=== PATIENT | male | born 1975 | race African-American/Black ===

== ENCOUNTER 2020-07-10 15:55 | Inpatient (IN) | payer OTHER ==
[2020-07-10] VITALS (176 sets, daily range): BP systolic 108; BP diastolic 71; PULSE 142; TEMP 98; O2SAT 94–100
[~2020-07-10] VITALS: Ht 182.9 cm; Wt 95.1 kg
[2020-07-10] MEDS ORDERED: SEROQUEL300 MG PO (16:47)
[2020-07-10] MEDS ORDERED: ASPIRIN 32325 MG/TAB PO (16:47)
[2020-07-10] MEDS ORDERED: PERIACTIN 4MG TA4 MG PO (16:48)
[2020-07-10] MEDS ORDERED: LIPITOR 80MG80 MG PO (16:48)
[2020-07-10] MEDS ORDERED: DEPAKOTE500 MG PO (16:48)
[2020-07-10] MEDS ORDERED: TRICOR145 MG PO (16:49)
[2020-07-10] MEDS ORDERED: PROZAC60 MG PO (16:49)
[2020-07-10] MEDS ORDERED: NEURONTIN100 MG/CAP PO (16:50)
[2020-07-10] MEDS ORDERED: HALDOL 2MG T2 MG/TAB PO (16:50)
[2020-07-10] MEDS ORDERED: VISTARIL100 MG PO (16:51)
[2020-07-10] MEDS ORDERED: INSLANT SQ (16:52)
[2020-07-10] MEDS ORDERED: PRINIVIL40 MG PO (16:55)
[2020-07-10] MEDS ORDERED: [UNRECOGNIZED DRUG - OTHER] PO (16:55)
[2020-07-10] MEDS ORDERED: GLUCOPHAGE500 MG/TAB PO (16:56)
[2020-07-10] MEDS ORDERED: MINIPRESS2 MG PO (16:57)
[2020-07-10] MEDS ORDERED: VIAGRA50 M1 PO (16:57)
[2020-07-10] MEDS ORDERED: DESYREL 100MG100 MG PO (16:58)
[2020-07-10 17:20] LABS: ARTERIAL BLD GAS O2 SATURATION 97.8 % (92-100); ARTERIAL BLD GAS TCO2 CT 5.9; ARTERIAL BLOOD GAS BASE EXCESS -24.5 (-2-2); ARTERIAL BLOOD GAS HCO3 5.2 meq/L (22-26)
[2020-07-10 17:22] LABS: ARTERIAL BLOOD GAS PCO2 21.5 mmHg (35-45); ARTERIAL BLOOD GAS PO2 123.5 mmHg (80-100)
[2020-07-10 17:26] LABS: COLLECTION METHOD CATHETER
[2020-07-10 17:34] LABS: MUCOUS Present /lpf; PH 5 (5-8); SQUAMOUS EPITHELIAL 0-2 /hpf; URINE APPEARANCE Hazy; URINE BACTERIA None Seen /hpf; URINE BILIRUBIN Negative (NEGATIVE); URINE BLOOD 2+ (NEGATIVE); URINE COLOR Yellow; URINE GLUCOSE 3+ (NEGATIVE); URINE KETONE 2+ (NEGATIVE); URINE LEUKOCYTE ESTERASE Negative (NEGATIVE); URINE NITRATE Negative (NEGATIVE); URINE PROTEIN(semi-quant) 2+ (NEGATIVE); URINE RBC 0-2 /hpf; URINE UROBILINOGEN Negative (NEGATIVE)
[2020-07-10 19:12] LABS: CALCIUM 8.8 mg/dL (8.4-10.2); CREATININE, serum 2.48 (0.66-1.25)
[2020-07-10 19:18] LABS: POTASSIUM 5.8 mmol/L (3.4-5.0)
[2020-07-10 19:54] LABS: ARTERIAL BLD GAS O2 SATURATION 96.6 % (92-100); ARTERIAL BLD GAS TCO2 CT 8.1; ARTERIAL BLOOD GAS BASE EXCESS -20.2 (-2-2); ARTERIAL BLOOD GAS HCO3 7.4 meq/L (22-26); ARTERIAL BLOOD GAS PO2 90.8 mmHg (80-100)
[2020-07-10 19:56] LABS: ARTERIAL BLOOD GAS PCO2 23.1 mmHg (35-45); ARTERIAL BLOOD GAS pH 7.12 (7.35-7.45)
--- NOTE | 2020-07-10 20:00 | NUR ---
Pt waking up, moving extremities, open eyes briefly and coughing tripping alarm on ventilator. Fentanyl gtt intiated for RASS goal. Bilateral soft wrist restraints in place and slip-knot secured
--- NOTE | 2020-07-10 20:10 | NUR ---
MD Viktor called with CBC, CMP and ABG results including criticals. No new orders. Orders to ensure Magnesium and Phosphorus included on next lab draw at 2200 - wishes to be called with results
[2020-07-10 21:02] LABS: CALCIUM 9.1 mg/dL (8.4-10.2); CREATININE, serum 1.96 (0.66-1.25); POTASSIUM 5.2 mmol/L (3.4-5.0)
[2020-07-10 22:03] LABS: CALCIUM 8.9 mg/dL (8.4-10.2); CREATININE, serum 1.71 (0.66-1.25); POTASSIUM 4.9 mmol/L (3.4-5.0)
[2020-07-10 22:37] LABS: MAGNESIUM 3.2 mg/dL (1.6-2.3); PHOSPHOROUS 2.1 mg/dL (2.5-4.5)
--- NOTE | 2020-07-10 22:56 | NUR ---
BMP lab results phoned to MD Alexandra orders recieved to discontinue NS @ 100mL/hr, discontinue D5 1/2 NS @ 250mL/hr and initiate D5NS @ 100mL/hr, repeat labs again at 0200, notifiy only if pt's improving trend stops and has worsening lab values.
--- NOTE | 2020-07-10 23:26 | NUR ---
RASS:-2 RASS increases to 0 to +1 with turning or assessment. Pt opening eyes, moving all extremities, does not follow commands at this time
[2020-07-11] VITALS (303 sets, daily range): BP systolic 104–147; BP diastolic 69–87; PULSE 91–130; TEMP 97.5–100.9; O2SAT 76–100
[2020-07-11 02:19] LABS: CALCIUM 8.8 mg/dL (8.4-10.2); CREATININE, serum 1.38 (0.66-1.25); MAGNESIUM 2.8 mg/dL (1.6-2.3); PHOSPHOROUS 1.5 mg/dL (2.5-4.5); POTASSIUM 4.6 mmol/L (3.4-5.0)
--- NOTE | 2020-07-11 02:23 | NUR ---
Without disturbing, pt waking up, opening eyes, shifting and turning entire body, moving hands in direction of face, attempting to vocalize and kicking legs. Pt unable to follow commands or nonverbally communicate comprehension of reorientation.
--- NOTE | 2020-07-11 05:00 | NUR ---
Pt's room tempature suddenly warm, pt's temp taken and is higher than previously, overhead fan and wet handtowel placed on forehead. Thermostat in room already set to cool. STAT work order placed to service issued. AVTAR Blanton notified after pt's temp 100.8F
--- NOTE | 2020-07-11 05:00 | NUR ---
Insulin gtt now infusing to central line. gtt was infusing through RAC, increased blood sugars noted after being stable throughout the night. Peripheral IV appears to flush without difficulty, however pt has been moving arms quite abit throughout the night during episodes of restlessness and IV may have dislodged from vein. Will continue to monitor blood sugars hourly aware of potential SQ insulin from gtt if IV did infiltrate.
[2020-07-11 05:42] LABS: HEMOGLOBIN 10.2 g/dl (13.5-18.0); MEAN CELL VOLUME 80 fl (80.0-100.0); MEAN CORPUSCULAR HEMOGLOBIN 26 pg (27.0-31.0); MEAN CORPUSCULAR HGB CONC 33 g/dl (33.0-37.0); MEAN PLATELET VOLUME 10.3 fl (7.4-10.4); PLATELET COUNT 240 K/mm3 (130-400); RED BLOOD COUNT 3.87 M/mm3 (4.20-5.60); REDCELL DISTRIBUTION WIDTH-CV 16.4 % (11.5-14.5)
--- NOTE | 2020-07-11 05:43 | NUR ---
RASS: +3 after initiating Sedation Vacation. Pt unable to follow commands d/t aggitation. Sedation resumed
[2020-07-11 05:44] LABS: ARTERIAL BLD GAS O2 SATURATION 95.9 % (92-100); ARTERIAL BLOOD GAS BASE EXCESS -13.1 (-2-2); ARTERIAL BLOOD GAS PCO2 25.9 mmHg (35-45); ARTERIAL BLOOD GAS pH 7.28 (7.35-7.45)
[2020-07-11 05:46] LABS: HEMATOCRIT 31.1 % (42.0-52.0)
[2020-07-11 05:56] LABS: CALCIUM 8.9 mg/dL (8.4-10.2); CREATININE, serum 1.3 (0.66-1.25); POTASSIUM 4.3 mmol/L (3.4-5.0)
--- NOTE | 2020-07-11 06:09 | NUR ---
MD Viktor notified of all lab results, fever and vital signs (sustained tachycardia 120-130bpm), and chest xray. stating he will be in early this morning to see pt
[2020-07-11 06:39] LABS: BAND 43 % (0-10); LYMPHOCYTE 6 % (20.0-51.0); NEUTROPHILS 46 % (42.0-75.2); PLATELET ESTIMATE NORMAL (NORMAL)
[2020-07-11 06:40] LABS: ANISOCYTOSIS 1+; HYPOCHROMIA 1+
[2020-07-11 08:01] LABS: CALCIUM 8.9 mg/dL (8.4-10.2); CREATININE, serum 1.27 (0.66-1.25); POTASSIUM 4.4 mmol/L (3.4-5.0)
--- NOTE | 2020-07-11 08:35 | NUR ---
Dr. Hoang advises to reduce sedation and perform weaning trial. Sedation has been lowerd at this time and will continue to decrease and notify RT when PT is alert.
--- NOTE | 2020-07-11 10:02 | NUR ---
Preliminary Search SW attempted to gather information for client who is intubated. SW reached out to Linda Hood (ex-) . Ms. Hood reports that they have not been for 4 years and does not know any of his medical information up to date. Ms. Hood provided a contact for clients Step Daughter Bryanna Estrada . Ms. Pierce reports that she resides with the client in his home and that family for this client is in [place]. Ms. Pierce reports that the client has not had any contact with his biological family in many years. Client is reported to have a bio-son. Social worked asked about legal DPOA, Ms. Pierce reports that the client started on it but is not sure if it was finished. [facility] [place] and left message for worker to call back. SW took to social media to contact family and left messages for family to call. DTR was unsure on PCP. SUMA recieved call back from supervisor [facility]aring [facility] believes [facility]. Awaiting on ppw. Will update. PCP is Dr. Morillo at [facility] [place].
--- NOTE | 2020-07-11 10:08 | NUR ---
rigging up worker contacted Mary Ellen at the [facility]. Mary Ellen states that patient's provider is Dr Morillo and that the last appointment was in January 2020 via phone call. Patient's next appointment is scheduled for July 18, 2020. Mary Ellen states that they have a durable power of county attorney for health care namin his step daughter and will fax it now. Patient is currently ventilated.
[2020-07-11 10:12] LABS: CALCIUM 9.4 mg/dL (8.4-10.2); CREATININE, serum 1.23 (0.66-1.25); POTASSIUM 4.2 mmol/L (3.4-5.0)
--- NOTE | 2020-07-11 11:06 | NUR ---
DPOA PPW recieved. Copy placed on patients chart and sw called and notified Step Daughter of PPW.
[2020-07-11 12:09] LABS: CALCIUM 9.1 mg/dL (8.4-10.2); CREATININE, serum 1.16 (0.66-1.25); POTASSIUM 3.8 mmol/L (3.4-5.0)
[2020-07-11 13:01] LABS: MAGNESIUM 2.8 mg/dL (1.6-2.3); PHOSPHOROUS 1.5 mg/dL (2.5-4.5)
[2020-07-11 16:13] LABS: ARTERIAL BLD GAS O2 SATURATION 96.8 % (92-100); ARTERIAL BLD GAS TCO2 CT 17.5; ARTERIAL BLOOD GAS BASE EXCESS -5.5 (-2-2); ARTERIAL BLOOD GAS HCO3 16.8 meq/L (22-26); ARTERIAL BLOOD GAS pH 7.46 (7.35-7.45)
[2020-07-11 17:07] LABS: CALCIUM 9.2 mg/dL (8.4-10.2); CREATININE, serum 1.02 (0.66-1.25); POTASSIUM 3.2 mmol/L (3.4-5.0)
--- NOTE | 2020-07-11 19:00 | NUR ---
Bedside report recieved from KARY Torres - per Viktor Torres MD called her and ordered a decrease in Tidal Volume from 550mL to 400mL, and decrease Vent Rate from 22 to 20. Vent settings confirmed - this occured just before 1900 shift change
--- NOTE | 2020-07-11 19:27 | NUR ---
Shift report given to KARY Braswell. Care relinquished at this time.
[2020-07-11 21:38] LABS: CALCIUM 8.9 mg/dL (8.4-10.2); CREATININE, serum 0.93 (0.66-1.25); POTASSIUM 3.2 mmol/L (3.4-5.0)
--- NOTE | 2020-07-11 21:58 | NUR ---
Inquired with [facility]-ICU physician regarding low Potassium lab. MD instructed to wait until 20MM KPhos infusion is completed in 5.5 hours, then redraw chemistry panel.
[2020-07-12] VITALS (566 sets, daily range): BP systolic 105–150; BP diastolic 74–99; PULSE 84–128; TEMP 98.1–99.4; O2SAT 77–100
--- NOTE | 2020-07-12 00:24 | NUR ---
DELFINO-Physican notified decreased urine output and tachycardia. Orders recieved
--- NOTE | 2020-07-12 00:58 | NUR ---
During turn and repositioning pt SpO2 decreased to 84% (pt was flat), 100% FiO2 applied for 2min and pt sat up to 35degrees, SpO2 slowly returned to 100% on 100%FiO2. At begining of shift [id number]% on 30% FiO2 - SpO2 now 93-94%. RT Noris notified at 0100.
--- NOTE | 2020-07-12 01:25 | NUR ---
BENTON notified by NorisRT: pt lung sounds, HR, urine output, peak pressures, and SpO2 have worsened since begining of shift and since Tidal Volume decreased from 550mL to 400mL 0130: NorisRT recieved and carried out orders to increase Tidal Volume back to 450mL. 0140: Pt less restless, HR was 120's and is now 80-90, SpO2 now 98%
--- NOTE | 2020-07-12 01:29 | NUR ---
Notified Ana Lilia of decreased oxygen saturations, increased heart rate, decreased urine output, and course/diminished breath sounds at the bases. VT was decreased from 550 to 400 around 1845 by Melissa PRESTON per Dr. Hoang. Ana Lilia ordered to change VT back to 550 and blood gas in one hour.
--- NOTE | 2020-07-12 02:48 | NUR ---
Ana Lilia called at this time for blood gas results and to follow up on a rate change. Doctor busy at this time and told they would call back.
[2020-07-12 02:49] LABS: ARTERIAL BLD GAS O2 SATURATION 96.3 % (92-100); ARTERIAL BLD GAS TCO2 CT 19.5; ARTERIAL BLOOD GAS BASE EXCESS -3.8 (-2-2); ARTERIAL BLOOD GAS HCO3 18.7 meq/L (22-26); ARTERIAL BLOOD GAS PCO2 25.9 mmHg (35-45); ARTERIAL BLOOD GAS PO2 73.2 mmHg (80-100); ARTERIAL BLOOD GAS pH 7.48 (7.35-7.45)
--- NOTE | 2020-07-12 03:55 | NUR ---
Ana Lilia called again at this time to follow up on a call back that we never recieved. Was told the doctor would call back, name and number given.
[2020-07-12 04:05] LABS: MEAN CELL VOLUME 78 fl (80.0-100.0); MEAN CORPUSCULAR HGB CONC 34 g/dl (33.0-37.0); MEAN PLATELET VOLUME 10.3 fl (7.4-10.4); PLATELET COUNT 192 K/mm3 (130-400); RED BLOOD COUNT 3.51 M/mm3 (4.20-5.60); REDCELL DISTRIBUTION WIDTH-CV 16.6 % (11.5-14.5)
[2020-07-12 04:06] LABS: HEMATOCRIT 27.2 % (42.0-52.0); HEMOGLOBIN 9.2 g/dl (13.5-18.0); MEAN CORPUSCULAR HEMOGLOBIN 26 pg (27.0-31.0)
[2020-07-12 04:16] LABS: CALCIUM 8.8 mg/dL (8.4-10.2); CREATININE, serum 0.81 (0.66-1.25); MAGNESIUM 2.5 mg/dL (1.6-2.3); POTASSIUM 3.1 mmol/L (3.4-5.0)
--- NOTE | 2020-07-12 04:39 | NUR ---
DELFINO physician notified of recent potassium and phosphorus levels. Awaiting orders
--- NOTE | 2020-07-12 04:53 | NUR ---
KARY Schmidtlaundromat manager notified of [facility] order
--- NOTE | 2020-07-12 05:00 | NUR ---
Sedation Vacation is to be completed when MD Viktor arrives to unit per RT Noris.
[2020-07-12 05:21] LABS: BAND 18 % (0-10); HYPOCHROMIA 1+; LYMPHOCYTE 20 % (20.0-51.0); MYELOCYTE 4 % (0-0); NEUTROPHILS 44 % (42.0-75.2); PLATELET ESTIMATE NORMAL (NORMAL)
[2020-07-12 05:23] LABS: ANISOCYTOSIS 1+; SCHISTOCYTES 1+; TEAR DROP CELLS 2+
[2020-07-12 05:41] LABS: ARTERIAL BLD GAS O2 SATURATION 96.8 % (92-100); ARTERIAL BLD GAS TCO2 CT 21.3; ARTERIAL BLOOD GAS BASE EXCESS -2.1 (-2-2); ARTERIAL BLOOD GAS HCO3 20.4 meq/L (22-26); ARTERIAL BLOOD GAS PCO2 27.4 mmHg (35-45); ARTERIAL BLOOD GAS PO2 76.1 mmHg (80-100); ARTERIAL BLOOD GAS pH 7.49 (7.35-7.45)
--- NOTE | 2020-07-12 07:00 | NUR ---
REPORT RECEIVED FROM TIMOTHY PRESTON. PT IS ON VENT AND SEDATED. PT HAS TF RUNNING. INSULIN DRIP AND KPHOS ALSO RUNNING. VSS. WILL CONTINUE TO MONITOR.
[2020-07-12 08:15] LABS: PATHOLOGY DIFF REVIEW OK
--- NOTE | 2020-07-12 09:05 | NUR ---
SEDATION DECREASED PER . TF STOPPED AND OG PLACED TO SUCTION. WILL ATTEMPTED CPAP TRIAL WHEN PT MORE AWAKE. VIJAYA MAHONEY NOTIFIED.
--- NOTE | 2020-07-12 10:15 | NUR ---
SEDATION STOPPED PER . PT ON VENT WEANING TRIAL. PT OCCASIONALLY WILL OPEN EYES TO VOICE OR ATTEMPT TO SIT UP. PT STILL NOT ABLE TO FOLLOW COMMANDS.
--- NOTE | 2020-07-12 10:55 | NUR ---
PT EXTUBATED BY VIJAYA BROWN AT BEDSIDE. PT TACHYCARDIAC AFTER SEDATION PREVIOUSLY STOPPED AND ATTEMPTING TO SIT UP IN BED. PT PLACED ON OXYMASK AT 6L POST EXTUBATION. PT'S HR IN THE 110'S AFTER EXTUBATION. PT STILL VERY DROWSY BUT FREQUENTLY REORIENTED. WILL CONTINUE TO MONITOR CLOSELY.
[2020-07-12 13:01] LABS: CALCIUM 8.6 mg/dL (8.4-10.2); CREATININE, serum 0.81 (0.66-1.25); PHOSPHOROUS 3.7 mg/dL (2.5-4.5); POTASSIUM 3.4 mmol/L (3.4-5.0)
--- NOTE | 2020-07-12 14:46 | NUR ---
ON UNIT AND UPDATED ON PT. PT STILL LETHARGIC, UNABLE TO FOLLOW COMMANDS, AND NOT ANSWERING QUESTIONS. PT IS TACHYCARDIC IN THE 110-120'S. PT BECOMES TACHYPNIC WITH ACTIVTY. OTHER VSS. PT MOVING AROUND IN BED AND ATTEMPTS TO SIT UP FREQUENTLY. STEP-DAUGHTER BEDSIDE. WILL CONTINUE TO MONITOR.
--- NOTE | 2020-07-12 15:15 | NUR ---
BEDSIDE. DISCUSSED PT'S LETHARGY, TACHYCARDIA, TACHYPNEA, AND URINE OUTPUT. NO NEW ORDERS AT THIS TIME. WILL CONTINUE TO MONITOR.
--- NOTE | 2020-07-12 16:55 | NUR ---
This nurse now taking over cares for the patient. Pt is restless in bed continues to pull at the side of the bed and intermittently sit up. Does not verbally respond to staff or follow commands. Keeps his eyes closed for the most part. Breathing is unlabored on 7L O2 via OM. Paul DD, dark Olivia urine present with sediment.
--- NOTE | 2020-07-12 18:30 | NUR ---
Received report from KARY Kay. All medications verified and all questions answered. Will resume care at this time. Patient laying in bed with oxymask on at 6L. VSS.
[2020-07-12 18:50] LABS: CALCIUM 9.1 mg/dL (8.4-10.2); CREATININE, serum 0.87 (0.66-1.25); POTASSIUM 3.9 mmol/L (3.4-5.0)
--- NOTE | 2020-07-12 23:15 | NUR ---
Nurse called [facility] and spoke to Dr. Mejia and stated that patient was attempting to pull at monitor chords, peripheral and central IV lines as well as sanders catheter. Nurse also stated that patient was continuously trying to get out of bed and stated he "thinks he can go home now." Nurse stated that PRN ativan was given and did not seem to help calm the patient as the patient appeared very anxious. Nurse also stated patients HR continued to climb into the 140s and RR increased into the 50-60s when patient was restless in bed or trying to get up. Received order for 2mg of haldol to be given.
[2020-07-12 23:34] LABS: ARTERIAL BLD GAS O2 SATURATION 94.6 % (92-100); ARTERIAL BLD GAS TCO2 CT 14.8; ARTERIAL BLOOD GAS BASE EXCESS -8.4 (-2-2); ARTERIAL BLOOD GAS HCO3 14.1 meq/L (22-26); ARTERIAL BLOOD GAS PO2 65.6 mmHg (80-100); ARTERIAL BLOOD GAS pH 7.43 (7.35-7.45)
[2020-07-12 23:37] LABS: ARTERIAL BLOOD GAS PCO2 21.9 mmHg (35-45)
--- NOTE | 2020-07-12 23:38 | NUR ---
Called Ana Lilia at this time in [facility] to ABG results. pH 7.428, pCO2 21.9, pO2 65.6, HCO3 14.1, BE -8.4, sO2 94.6. Pt on 6l NC. No changed or new orders and continue current treatment per Dr. Mejia.
[2020-07-13] VITALS (520 sets, daily range): BP systolic 110–153; BP diastolic 62–100; PULSE 64–112; TEMP 98.6–98.9; O2SAT 81–100
--- NOTE | 2020-07-13 01:12 | NUR ---
Nurse called Dr. Hoang and stated that patient was continually tachypneic with RR in the 40-60s and HR in the 140s and that patient was extremely restless and trying to get out of bed and pull at all lines. Nurse relayed that patient had been given ativan and haldol and neither medication seemed to help relax the patient. Nurse relayed patients recent ABG, I&Os and creat level for the day as Dr. Hoang had asked about them. Nurse received orders for precedex gtt to be started and for a one time order of 40mg lasix.
--- NOTE | 2020-07-13 02:11 | NUR ---
Precedex gtt started at 0211. Patient appearing restless and attempting to get out of bed every few mins and pulling at chords and IV lines and catheter.
[2020-07-13 02:46] LABS: CALCIUM 9.4 mg/dL (8.4-10.2); CREATININE, serum 0.83 (0.66-1.25); PHOSPHOROUS 2.1 mg/dL (2.5-4.5); POTASSIUM 3.7 mmol/L (3.4-5.0)
--- NOTE | 2020-07-13 04:04 | NUR ---
Unable to complete suicide assessment d/t patients altered mental status and not being able to answer questions appropriately.
[2020-07-13 05:47] LABS: MEAN CELL VOLUME 77 fl (80.0-100.0); MEAN CORPUSCULAR HGB CONC 33 g/dl (33.0-37.0); MEAN PLATELET VOLUME 9.9 fl (7.4-10.4); PLATELET COUNT 202 K/mm3 (130-400); RED BLOOD COUNT 3.85 M/mm3 (4.20-5.60); REDCELL DISTRIBUTION WIDTH-CV 16.8 % (11.5-14.5)
[2020-07-13 05:50] LABS: HEMATOCRIT 29.7 % (42.0-52.0); HEMOGLOBIN 9.8 g/dl (13.5-18.0); MEAN CORPUSCULAR HEMOGLOBIN 25 pg (27.0-31.0)
[2020-07-13 05:58] LABS: CALCIUM 9.4 mg/dL (8.4-10.2); CREATININE, serum 0.89 (0.66-1.25); PHOSPHOROUS 2.9 mg/dL (2.5-4.5); POTASSIUM 3.5 mmol/L (3.4-5.0)
--- NOTE | 2020-07-13 06:20 | NUR ---
Nurse went in to check on patient and noted that patient had pulled on IV in RAC. No medications infusing through peripheral IV site at the time the IV was pulled out. Catheter tip intact. Patient continuing to pull at monitor chords and lines. Nurse titrating precedex up. Patient placed in mitts to ensure integrity of lines.
[2020-07-13 06:31] LABS: BAND 10 % (0-10); LYMPHOCYTE 15 % (20.0-51.0); METAMYELOCYTE 2 % (0-0); MYELOCYTE 3 % (0-0); NEUTROPHILS 51 % (42.0-75.2)
[2020-07-13 06:32] LABS: ANISOCYTOSIS 1+; HYPOCHROMIA 1+; MICROCYTOSIS 1+; POIKILOCYTOSIS 1+
[2020-07-13 06:33] LABS: OVALOCYTES 1+; PLATELET ESTIMATE NORMAL (NORMAL); TARGET CELLS 1+
--- NOTE | 2020-07-13 07:00 | NUR ---
Received report from KARY Weathers. assumed care of pt at this time.
--- NOTE | 2020-07-13 19:43 | NUR ---
Received report from KARY Hernandez. Patient laying in bed resting. Patient is on precedex gtt and has mitts on to ensure integrity of IV lines. No concerns or complaints noted at this time. VSS. Will resume care at this time.
[2020-07-14] VITALS (536 sets, daily range): BP systolic 116–148; BP diastolic 71–97; PULSE 70–101; TEMP 97.2–98.7; O2SAT 80–100
--- NOTE | 2020-07-14 | NUR ---
Nurse took mitts off patient at 0000 assessment. Patient able to answer more questions appropriately and follow commands. Patient stated he understood the need for the IV lines and sanders catheter. Patient was compliant with education about not pulling or tugging on lines.
[2020-07-14 04:55] LABS: MEAN CELL VOLUME 78 fl (80.0-100.0); MEAN CORPUSCULAR HGB CONC 33 g/dl (33.0-37.0); MEAN PLATELET VOLUME 10.1 fl (7.4-10.4); PLATELET COUNT 194 K/mm3 (130-400); RED BLOOD COUNT 3.77 M/mm3 (4.20-5.60); REDCELL DISTRIBUTION WIDTH-CV 16.1 % (11.5-14.5)
[2020-07-14 05:00] LABS: HEMATOCRIT 29.5 % (42.0-52.0); HEMOGLOBIN 9.6 g/dl (13.5-18.0); MEAN CORPUSCULAR HEMOGLOBIN 25 pg (27.0-31.0)
[2020-07-14 05:07] LABS: ALBUMIN 3.1 gm/dL (3.5-5.0); BILIRUBIN,TOTAL 0.7 mg/dL (0.0-1.0); CREATININE, serum 0.85 (0.66-1.25); MAGNESIUM 2.2 mg/dL (1.6-2.3); PHOSPHOROUS 4.3 mg/dL (2.5-4.5); POTASSIUM 3.5 mmol/L (3.4-5.0); TOTAL PROTEIN 6.4 gm/dL (6.4-8.2)
[2020-07-14 05:29] LABS: ANISOCYTOSIS 1+; BAND 7 % (0-10); HYPOCHROMIA 1+; LYMPHOCYTE 24 % (20.0-51.0); NEUTROPHILS 59 % (42.0-75.2); PLATELET ESTIMATE NORMAL (NORMAL); POIKILOCYTOSIS 1+
[2020-07-14 05:30] LABS: MICROCYTOSIS 1+; TARGET CELLS 1+
[2020-07-14 05:36] LABS: THYROID STIMULATING HORMONE 2.99 uIU/mL (0.465-4.680)
--- NOTE | 2020-07-14 07:00 | NUR ---
PT RESTING IN BED. PT HAS PRECEDEX, KCL, AND IVF INFUSING. BEDALARM ACTIVE. PT'S VSS. WILL CONTINUE TO MONITOR.
--- NOTE | 2020-07-14 13:43 | NUR ---
SW met with patient, patient confirm Dr. Morillo at the [facility] is his PCP. Also confirms correct POA for healthcare decision is Step Daughter. Patient reports that he uses a cane for mobility. Patient denies having any other DME use. Patient reports that he will need Home health care in order to return home and that [facility] reports [facility] [place]. No further information.
--- NOTE | 2020-07-14 16:30 | NUR ---
Patient arrived to medical room 352 about this time, alert/oriented, vital signs stable, denies needs, call light in reach, bed alarm set and fall p/c in place
--- NOTE | 2020-07-14 17:21 | NUR ---
PT'S STEPDAUGHTER (DPOA) UPDATED ON PT AND TX TO FLOOR. REPORT CALLED TO ANDRAE PRESTON. ALL QUESTIONS ANSWERED. PT WHEELED UP TO ROOM 352. PT TRANSFERED TO BED. ORIENTED TO ROOM AND CALL LIGHT. BEDALARM ACTIVATED. ANDRAE PRESTON NOTIFIED OF ARRIVAL.
[2020-07-15 03:48] VITALS: BP 114/74; PULSE 109; TEMP 98.4
[2020-07-15 06:58] LABS: CALCIUM 9.1 mg/dL (8.4-10.2); CREATININE, serum 0.69 (0.66-1.25); MAGNESIUM 2.1 mg/dL (1.6-2.3); POTASSIUM 3.2 mmol/L (3.4-5.0)
[2020-07-15 07:44] VITALS: BP 129/75; PULSE 114; TEMP 98.4
--- NOTE | 2020-07-15 08:39 | NUR ---
PATIENT ASSESSMENT COMPLETED. HE DENIES COMPLAINTS OR NEEDS. DIDN'T SLEEP WELL LAST NIGHT. BLOOD SUGAR WAS JUST RETAKEN AND HE HAD JUST EATTEN ABOUT 20 MINUTES AGO. DENIES FURTHER NEEDS. WILL PROVIDE MORNING MEDICATIONS.
--- NOTE | 2020-07-15 09:18 | NUR ---
Pt. was laying in bed on my initial assessment, he did not need anything at this time. When i administered morning medications, pt. was sitting in recliner watching television.
--- NOTE | 2020-07-15 09:39 | NUR ---
PATIENT SLEEPING IN BED. NO SIGNS OF DISTESS NOTED
[2020-07-15 11:41] VITALS: BP 130/86; PULSE 116; TEMP 97.6
[2020-07-15 16:34] VITALS: BP 119/74; PULSE 108; TEMP 98.7
[2020-07-15 20:16] VITALS: BP 138/95; PULSE 99; TEMP 97.9
[2020-07-15 23:36] VITALS: BP 123/73; PULSE 102; TEMP 98.1
--- NOTE | 2020-07-15 23:58 | NUR ---
ASSESSMENT COMPLETE. NO CONCERNS REPORTED BY PATIENT AT THIS TIME. PATIENT RESTING IN BED. NO S/S OF DISTRESS.
[2020-07-16 05:33] VITALS: BP 122/89; PULSE 101; TEMP 98
[2020-07-16 06:15] LABS: MEAN CELL VOLUME 79 fl (80.0-100.0); MEAN CORPUSCULAR HGB CONC 32 g/dl (33.0-37.0); MEAN PLATELET VOLUME 9.6 fl (7.4-10.4); PLATELET COUNT 208 K/mm3 (130-400); RED BLOOD COUNT 3.89 M/mm3 (4.20-5.60); REDCELL DISTRIBUTION WIDTH-CV 15.2 % (11.5-14.5)
[2020-07-16 06:24] LABS: ALBUMIN 3.1 gm/dL (3.5-5.0); BILIRUBIN,TOTAL 0.5 mg/dL (0.0-1.0); CALCIUM 9.4 mg/dL (8.4-10.2); CREATININE, serum 0.7 (0.66-1.25); MAGNESIUM 2.2 mg/dL (1.6-2.3); PHOSPHOROUS 3.4 mg/dL (2.5-4.5); POTASSIUM 3.4 mmol/L (3.4-5.0); TOTAL PROTEIN 6.5 gm/dL (6.4-8.2)
[2020-07-16 06:27] LABS: HEMATOCRIT 30.6 % (42.0-52.0); HEMOGLOBIN 9.8 g/dl (13.5-18.0); MEAN CORPUSCULAR HEMOGLOBIN 25 pg (27.0-31.0)
[2020-07-16 06:31] LABS: PRE ALBUMIN 11.5 mg/dL (17.6-36.0)
[2020-07-16 07:00] LABS: BAND 9 % (0-10); EOSINOPHIL 3 % (0-4); LYMPHOCYTE 32 % (20.0-51.0); METAMYELOCYTE 2 % (0-0); NEUTROPHILS 45 % (42.0-75.2); PLATELET ESTIMATE NORMAL (NORMAL)
[2020-07-16 07:41] VITALS: BP 113/75; PULSE 114; TEMP 98.1
[2020-07-16] MEDS ORDERED: NOVOLOG 100U100 U/M1 SQ (08:28)
[2020-07-16] MEDS ORDERED: DOXYCYCLINE 10100 MG PO (08:31)
[2020-07-16] MEDS ORDERED: ASPIRIN E.C. 8181 MG PO (08:32)
--- NOTE | 2020-07-16 09:13 | NUR ---
Patient was laying in bed, waiting to be discharged later this afternoon. When I asked about the teaching I provided yestarday, the patient was able to verbalize what he would need to do when he goes home. He also seemed to understand a little more the importance of follow up appointments and compliance to medication orders.
--- NOTE | 2020-07-16 10:39 | NUR ---
Initial visit; Patient thanked Law Researcher for looking in on him and letting him know of the availability of spiritual care. Patient has no spiritual care needs he wishes to address at this time.
[2020-07-16 11:19] VITALS: BP 122/84; PULSE 98; TEMP 98.1
--- NOTE | 2020-07-16 14:10 | NUR ---
PATIENT LEFT HOSPITAL AMBULATING WITH STEAY GAIT. ALL BELONGINGS WITH PATIENT,
--- NOTE | 2020-07-16 14:38 | NUR ---
Patient to discharge home today. Patient's RN, Gauri advised that patient has been independent in his room. SW contacted Jay Jay at the [facility] and faxed records/discharge orders to fax#[phone].
== END 2020-07-16 14:12 | disposition home or self-care (01) | DRG 871 ==
LOC: COL.ER 15:55 → ICU 16:47 → COL.ER 16:59 → MEDICAL 07-14 17:41
PROVIDERS: Emergency Medicine; Hospitalist; Internal Medicine Critical Care Medicine; Internal Medicine Pulmonary Disease; Internal Medicine Sleep Medicine; Physician Assistant; ADMIT Internal Medicine
PROC: 0BH17EZ Insertion of Endotracheal Airway into Trachea, Via Natural or Artificial Opening (ICD-10-PCS; principal; 2020-07-10)
PROC: 5A1945Z Respiratory Ventilation, 24-96 Consecutive Hours (ICD-10-PCS; 2020-07-10)
PROC: 02HV33Z Insertion of Infusion Device into Superior Vena Cava, Percutaneous Approach (ICD-10-PCS; 2020-07-10)
DX: A41.9 Sepsis, unspecified organism (principal); E10.10 Type 1 diabetes mellitus with ketoacidosis without coma; J96.01 Acute respiratory failure with hypoxia; G93.41 Metabolic encephalopathy; N17.9 Acute kidney failure, unspecified; I10 Essential (primary) hypertension; E78.5 Hyperlipidemia, unspecified; E87.5 Hyperkalemia; E03.9 Hypothyroidism, unspecified; E83.39 Other disorders of phosphorus metabolism; F43.10 Post-traumatic stress disorder, unspecified; E87.6 Hypokalemia; F32.9 Major depressive disorder, single episode, unspecified; Z79.82 Long term (current) use of aspirin; Z20.822 Contact with and (suspected) exposure to COVID-19
CPT/HCPCS: 99223-AI; 99232-AI; 99233-AI; 99239; J0696; J1630; J1650; J1815; J1940; J2060; J2250; J2270; J2543; J2704; J3010; J3480; J7030; J7040; J7042; J7050